=== PATIENT | female | born 1995 | race African-American/Black ===

== ENCOUNTER 2018-01-04 14:09 | Emergency (ER) | payer MEDICARE ==
[~2018-01-04] VITALS: Ht 160 cm; Wt 127.3 kg
[2018-01-04 14:10] VITALS: Ht 160 cm; Wt 127.3 kg
[2018-01-04] MEDS ORDERED: BYSTOLIC5 MG PO (14:12)
[2018-01-04 16:03] VITALS: BP 120/51
== END 2018-01-04 16:04 | disposition home or self-care (01) ==
LOC: D.ER 14:09
DX: Z77.098 Contact with and (suspected) exposure to other hazardous, chiefly nonmedicinal, chemicals (principal); I10 Essential (primary) hypertension; F17.200 Nicotine dependence, unspecified, uncomplicated